=== PATIENT | male | born 1990 | race Two or more races ===

== ENCOUNTER 2021-07-19 16:27 | Emergency (ER) | payer SELFPAY ==
[~2021-07-19] VITALS: Ht 177.8 cm; Wt 108.9 kg
[2021-07-19] MEDS ORDERED: THIAMINE HCL 200 MG/2 ML VIAL IV ONE (16:45)
[2021-07-19] MEDS ORDERED: IV NORMAL SALINE 1000 ML BAG IV ONE (16:45)
--- NOTE | 2021-07-19 17:31 | NUR ---
PT IS IN ROOM #2B. DR SWEET EVALUATED THE PT.
[2021-07-19] MEDS ORDERED: THIAMINE HCL 200 MG/2 ML VIAL ONE (17:38)
[2021-07-19 17:44] LABS: HEMATOCRIT 36.4 % (36.7-47.1); MEAN CORPUSCULAR HEMOGLOBIN 30.7 uug (23.8-33.4); MEAN CORPUSCULAR VOLUME 91.9 fL (73.0-96.2); PLATELET COUNT (AUTO) 398 K/uL (152-348)
[2021-07-19 17:47] LABS: CREATININE 1.1 mg/dL (0.6-1.3); POTASSIUM 3.6 mmol/L (3.5-5.1)
[2021-07-19 17:54] LABS: BILIRUBIN,TOTAL 0.2 mg/dL (0.2-1.0); TOTAL PROTEIN, SERUM 7.3 g/dL (6.4-8.2)
--- NOTE | 2021-07-19 19:45 | NUR ---
Pt woke up irrate and wanting to leave. Myself and the EDMD tried to have him get back into bed but pt was adimant that he wanted to leave. Pt's gait was steady. Pt had good color, temp and appearance. Slightly slurring his words but was otherwise lucid and with it. Pt was starting to get load and seemed like he was about to get violent, so EDMD said to just let him go. Pt had already ripped out IV. Bleeding was stopped and IV sight dressed, pt handed belonging (one backpack) and allowed to walk out of dept. Pt thankful that we are letting him leave.
[2021-07-19 20:50] VITALS: BP 123/79
== END 2021-07-19 19:55 | disposition left against medical advice (07) ==
LOC: ER 16:29
DX: F10.129 Alcohol abuse with intoxication, unspecified (principal); Y90.8 Blood alcohol level of 240 mg/100 ml or more; E87.1 Hypo-osmolality and hyponatremia; R79.89 Other specified abnormal findings of blood chemistry; F17.290 Nicotine dependence, other tobacco product, uncomplicated; R00.0 Tachycardia, unspecified
CPT/HCPCS: 36415; 70450; 80053; 80320; 82962; 85025; 96361; 96374; 99284; J3411; A4663; G0480; J7030